=== PATIENT | female | born 1995 | race Caucasian/White ===

== ENCOUNTER 2016-10-12 00:08 | Emergency (ER) | payer OTHER ==
[~2016-10-12] VITALS: Ht 162.5 cm; Wt 99.8 kg
[~2016-10-12 00:08] MED LIST: ALBUTEROL0.09 MG/A2 INH; BACTRIM DS 8001 TA1 PO; BACTROBAN CREAM15 GM T; KEFLEX500 MG PO; NORCO 325 MG-51 TAB PO; PANTOPRAZOLE SO40 MG PO; VICO10300 PO
[2016-10-12] MEDS ORDERED: Motrin,Rufen800 MG PO (02:29)
== END 2016-10-12 03:40 | disposition home or self-care (01) ==
LOC: ED 00:08
DX: M25.561 Pain in right knee (principal); M54.2 Cervicalgia; V49.88XA Car occupant (driver) (passenger) injured in other specified transport accidents, initial encounter; Y93.89 Activity, other specified; Y92.89 Other specified places as the place of occurrence of the external cause; Y99.9 Unspecified external cause status

== ENCOUNTER 2017-09-04 22:56 | Emergency (ER) | payer OTHER ==
[~2017-09-04] VITALS: Ht 167.6 cm; Wt 90.7 kg
[~2017-09-04 22:56] MED LIST changes: +Motrin,Rufen800 MG PO
[2017-09-04] MEDS ORDERED: CLINDAMYCIN HC300 MG PO (23:20)
[2017-09-04] MEDS ORDERED: IBUPROFEN600 MG PO (23:20)
[2017-09-04] MEDS ORDERED: CLARITIN-D 24 H1 TAB PO (23:20)
== END 2017-09-04 23:36 | disposition home or self-care (01) ==
LOC: ED 22:56
DX: K08.89 Other specified disorders of teeth and supporting structures (principal); R51 Headache; F17.200 Nicotine dependence, unspecified, uncomplicated

== ENCOUNTER 2019-03-22 00:24 | Emergency (ER) | payer OTHER ==
[~2019-03-22] VITALS: Wt 102.1 kg
[~2019-03-22 00:24] MED LIST changes: +CLARITIN-D 24 H1 TAB PO; +CLINDAMYCIN HC300 MG PO; +IBUPROFEN600 MG PO
[2019-03-22] MEDS ORDERED: CLINDAMYCIN HC300 MG PO (01:02)
== END 2019-03-22 01:09 | disposition home or self-care (01) ==
LOC: ED 00:24
DX: K02.9 Dental caries, unspecified (principal); Z79.2 Long term (current) use of antibiotics; Z79.899 Other long term (current) drug therapy

== ENCOUNTER → 2020-12-20 | Outpatient (CLI) | payer OTHER ==
[2020-12-20 11:04] LABS: ALBUMIN 3.2 gm/dl (3.1-4.5); BUN 9 mg/dl (7-24); CHLORIDE 108 mmol/L (98-107); POTASSIUM 3.9 mmol/L (3.5-5.1); SGPT/ALT 27 U/L (12-78); SODIUM 140 mmol/L (136-145)
[2020-12-20 11:06] LABS: ALKALINE PHOSPHATASE 62 U/L (45-117); CHOLESTEROL 132 mg/dL (<200); CREATININE 0.65 mg/dL (0.55-1.02); HDL CHOLESTEROL 47 mg/dl (40-60); LDL CHOLESTEROL 68 mg/dL (9-159); SGOT/AST 12 IU/L (3-35); TOTAL PROTEIN 7.1 gm/dL (6.4-8.2); TRIGLYCERIDES 87 mg/dl (<150); VLDL CHOLESTEROL 17 mg/dL (6-40)
== END | disposition home or self-care (01) ==
LOC: LAB 10:06
PROVIDERS: ATTEND Nurse Practitioner Family
DX: E88.81 Metabolic syndrome and other insulin resistance (principal); E66.01 Morbid (severe) obesity due to excess calories; Z83.3 Family history of diabetes mellitus

== ENCOUNTER → 2022-08-22 | Outpatient (CLI) | payer OTHER | END | disposition home or self-care (01) | LOC: LAB 08:48 → RAD 08:48 | PROVIDERS: ATTEND Nurse Practitioner Family | DX: R05.9 Cough, unspecified (principal); R06.2 Wheezing ==

== ENCOUNTER 2023-10-25 16:09 | Emergency (ER) | payer OTHER ==
[~2023-10-25] VITALS: Ht 162.5 cm; Wt 104.3 kg
[2023-10-25 17:07] LABS: BASO % 0.2 % (0.0-1.0); EOS # 0.1 10*3/uL (0.0-0.4); EOS % 1.2 % (1.0-4.0); HEMATOCRIT 39.8 % (37.0-47.0); LYMPH # 1.2 10*3/uL (1.3-4.4); MEAN CELL VOLUME 92.8 fl (81.0-99.0); MEAN CORPUSCULAR HGB 29.6 pg (27.0-31.0); MEAN CORPUSCULAR HGB CONC 31.9 g/dl (33.0-37.0); MEAN PLATELET VOLUME 9.6 fl (9.6-12.3); MONO # 0.6 10*3/uL (0.1-1.0); MONO % 6.3 % (3.0-9.0); NEUT # 7.2 10*3/uL (2.3-7.9); NEUT % 78.9 % (47.0-73.0); PLATELET COUNT AUTOMATED 272 10*3/uL (130-400); RED BLOOD COUNT 4.29 10*6/uL (4.10-5.10); RED CELL DISTRI WIDTH 12.1 % (0-14.5); WHITE BLOOD COUNT 9.1 10*3/uL (4.8-10.8)
[2023-10-25 17:26] LABS: BUN 5 mg/dl (9-23); CHLORIDE 102 mmol/L (98-107); POTASSIUM 3.6 mmol/L (3.4-5.1)
[2023-10-25] MEDS ORDERED: MEDROL DOSEPAK4 MG PO (18:47)
== END 2023-10-25 18:48 | disposition home or self-care (01) ==
LOC: ED 16:09
PROVIDERS: Physician Assistant Medical
DX: J06.9 Acute upper respiratory infection, unspecified (principal); Z20.822 Contact with and (suspected) exposure to COVID-19; H92.03 Otalgia, bilateral; Z98.890 Other specified postprocedural states; J45.909 Unspecified asthma, uncomplicated